=== PATIENT | female | born 1935 | race Caucasian/White ===

== ENCOUNTER 2017-05-07 11:38 | Inpatient (IN) | payer MEDICARE, BC ==
[~2017-05-07] VITALS: Ht 167.6 cm; Wt 63.5 kg
[2017-05-07] MEDS ORDERED: IV NORMAL SALINE 500 ML IV ONE (12:15)
[2017-05-07] MEDS ORDERED: ONDANSETRON IV *ER 4 MG/2 ML VIAL IV ONE (12:15)
[2017-05-07] MEDS ORDERED: MORPHINE SULFATE 2 MG/1 ML DISP.SYRIN IV ONE (12:15)
[2017-05-07 12:32] LABS: *BILIRUBIN,URIN NEGATIVE (NEGATIVE); *BLOOD, URINE Trace-lysed (NEGATIVE); *CLARITY,URINE CLEAR (CLEAR); *COLOR,URINE YELLOW (YELLOW); *KETONES,URINE TRACE (NEGATIVE); *PROTEIN,URINE NEGATIVE (NEGATIVE); *UROBILINOGEN,URINE 0.2 E.U./dl (NORMAL); LEUKOCYTE ESTERASE ,URINE 1+ (NEGATIVE); NITRITE, URINE NEGATIVE (NEGATIVE); UGLUCOSE NEGATIVE (NEGATIVE)
[2017-05-07] MEDS ORDERED: ONDANSETRON 4 MG/2 ML VIAL ONE (12:32)
[2017-05-07] MEDS ORDERED: MORPHINE SULFATE 10 MG/1 ML DISP.SYRIN ONE (12:33)
[2017-05-07 12:52] LABS: BASOPHILS # (AUTO) 0.1 K/uL (0.0-8.0); BASOPHILS % (AUTO) 0.3 % (0.0-2.0); EOSINOPHILS % (AUTO) 0.1 % (0.0-7.0); HEMATOCRIT 36.2 % (37-47); HEMOGLOBIN 12.6 G/DL (12.0-16.0); LYMPHOCYTES # (AUTO) 0.7 K/UL (0.8-4.8); LYMPHOCYTES % (AUTO) 3.4 % (20.5-51.5); MEAN CORPUSCULAR HEMOGLOBIN 33.5 UUG (27.0-31.0); MEAN CORPUSCULAR HGB CONC 35 g/dL (32.0-37.0); MEAN CORPUSCULAR VOLUME 96.6 FL (81.0-99.0); MONOCYTES # (AUTO) 1.8 K/UL (0.1-1.30); MONOCYTES % (AUTO) 8.4 % (0.0-11.0); NEUTROPHILS # (AUTO) 18.7 K/UL (1.8-8.9); NEUTROPHILS % (AUTO) 87.8 % (38.5-71.5); PLATELET COUNT (AUTO) 150 K/UL (150-450); RED BLOOD CELL COUNT(AUTO) 3.75 MIL/UL (4.2-5.4); WHITE BLOOD COUNT (AUTO) 21.3 K/UL (4.0-11.2)
[2017-05-07 12:59] LABS: BACTERIA,URINE FEW /HPF (NONE SEEN); SQUAMOUS EPITHELIAL CELL,UR FEW /HPF (NONE SEEN)
[2017-05-07 13:07] LABS: ALANINE AMINOTRANSFERASE 22 U/L (14-59); ALKALINE PHOSPHATASE 47 U/L (50-136); ASPARTATE AMINOTRANSFERASE 42 U/L (15-37); BILIRUBIN,TOTAL 0.9 mg/dL (0.2-1.0); CARBON DIOXIDE 24 mmol/L (21-32); CHLORIDE 102 mmol/L (98-107); CREATINE KINASE, TOTAL 813 U/L (26-192); CREATININE 0.5 mg/dL (0.6-1.3); GLUCOSE 129 mg/dL (74-106); POTASSIUM 4.3 mmol/L (3.5-5.1); TOTAL PROTEIN, SERUM 6.7 g/dL (6.4-8.2); UREA NITROGEN, BLOOD 14 mg/dL (7-18)
[2017-05-07 13:15] LABS: BAND % (MANUAL) 10 % (0-10); LYMPHOCYTES % (MANUAL) 3 % (20-40); MONOCYTES % (MANUAL) 12 % (2-10); NEUTROPHILS % (MANUAL) 75 % (42-75)
[2017-05-07] MEDS ORDERED: CEFTRIAXONE 1 G in IV DEXTROSE 5% 50 ML IV ONE (14:15)
[2017-05-07] MEDS ORDERED: IV NS 1000 ML 1,000 ML IV ONE (14:15)
--- NOTE | 2017-05-07 14:30 | NUR ---
Per pt to be admitted to tele. Pt resting at this time with no s/s of acute distress noted. Daughter remains at bedside.
[2017-05-07] MEDS ORDERED: CEFTRIAXONE 1 G VIAL ONE (14:40)
--- NOTE | 2017-05-07 14:49 | NUR ---
SBAR report given to Angela TODD via telephone.
--- NOTE | 2017-05-07 14:57 | NUR ---
SBAR report received from Mary TODD
--- NOTE | 2017-05-07 15:18 | NUR ---
Pt trans to tele floor, NAD noted.
--- NOTE | 2017-05-07 15:51 | NUR ---
Admitted to room 228 tele status 81 yr old femal who had a mechanical fall and had a fracture of the right humerus. patient is awake and responsive Addendum: 05/07/17 at 1656 by NATALEE GUAN RN Amended: Links added.
[2017-05-07 15:55] VITALS: BP 125/60
[2017-05-07] MEDS ORDERED: ZOLPIDEM 5 MG TABLET PO PRN (16:30)
[2017-05-07] MEDS ORDERED: ONDANSETRON 4 MG/2 ML VIAL IV PRN (16:30)
[2017-05-07] MEDS ORDERED: MORPHINE SULFATE 2 MG/1 ML DISP.SYRIN IV PRN (16:30)
[2017-05-07] MEDS ORDERED: Z GUARD REMEDY PASTE 57 GM TUBE TOP PRN (16:30)
[2017-05-07] MEDS ORDERED: MAGNESIUM HYDROXIDE 30 ML LIQUID UDC PO PRN (16:30)
[2017-05-07] MEDS ORDERED: ACETAMINOPHEN 325 MG TABLET PO PRN (16:30)
[2017-05-07] MEDS: IV D5 1/2 NS 1000 ML 1,000 ML IV PRN (17:09)
[2017-05-07] MEDS: HYDROMORPHONE 2 MG/1 ML DISP.SYRIN IV PRN ×2 (17:16→22:39)
--- NOTE | 2017-05-07 17:16 | NUR ---
medicated for brandan pain scale 12/17 Addendum: 05/07/17 at 1856 by NATALEE GUAN RN Amended: Sandy added. Addendum: 05/07/17 at 1901 by NATALEE GUAN RN Amended: Sandy added.
--- NOTE | 2017-05-07 17:16 | NUR ---
IV fluid D5 1/2 NS started at 75 ml/hr via left hand #20 Addendum: 05/07/17 at 1902 by NATALEE GUAN RN Amended: Links added.
--- NOTE | 2017-05-07 19:20 | NUR ---
report given to Gisela RN Addendum: 05/07/17 at 1921 by NATALEE GUAN RN Amended: Links added.
--- NOTE | 2017-05-07 19:30 | NUR ---
nsg: pt received a/o x 4, c/o right arm, should pain, 01/17, currently using the toilet accompanied by daughter. wears sling on right arm. tele, SR. on cont ivf. bed alarm on. call light within reach.
[2017-05-07] MEDS: HYDROCODONE/APAP 5-325MG TABLET PO PRN (20:16)
--- NOTE | 2017-05-07 20:25 | NUR ---
nsg: spoke with Dr. Lam. per not aware that he's is consulted for this patient. received order for npo after midnight. per pt will be evaluated tomorrow.
[2017-05-07 20:31] VITALS: BP 146/53
[2017-05-08 00:21] VITALS: BP_SYST 112; BP_DIAS 41; BP_DIAS 49
[2017-05-08] MEDS: HYDROMORPHONE 2 MG/1 ML DISP.SYRIN IV PRN ×5 (03:49→23:13)
[2017-05-08 04:50] VITALS: BP 97/44
--- NOTE | 2017-05-08 06:00 | NUR ---
nsg: all needs attended. c/o of right arm/shoulder pain with activity. received dilaudid 0.25mg ivp. assisted to the bedside commode. has small frequent urinary output, denies bladder discomfort. tele, SR. on cont ivf. currently npo for possible surgery. cont to monitor.
[2017-05-08 06:42] LABS: CARBON DIOXIDE 28 mmol/L (21-32); CHLORIDE 101 mmol/L (98-107); CREATININE 0.6 mg/dL (0.6-1.3); GLUCOSE 118 mg/dL (74-106); PHOSPHOROUS 2.4 mg/dL (2.5-4.9); POTASSIUM 3.5 mmol/L (3.5-5.1); UREA NITROGEN, BLOOD 14 mg/dL (7-18)
[2017-05-08 06:57] LABS: BASOPHILS % (AUTO) 0.2 % (0.0-2.0); EOSINOPHILS % (AUTO) 0.2 % (0.0-7.0); HEMATOCRIT 27.9 % (31.2-41.9); HEMOGLOBIN 9.6 g/dL (10.9-14.3); LYMPHOCYTES % (AUTO) 8.1 % (20.5-51.5); MEAN CORPUSCULAR HGB CONC 34 g/dL (32.3-35.6); MEAN CORPUSCULAR VOLUME 98.9 fL (75.5-95.3); MONOCYTES # (AUTO) 1.7 K/uL (2.0-10.0); MONOCYTES % (AUTO) 13.7 % (0.0-11.0); NEUTROPHILS # (AUTO) 9.8 K/uL (1.8-8.9); NEUTROPHILS % (AUTO) 77.8 % (38.5-71.5); PLATELET COUNT (AUTO) 209 K/uL (179-408); RED BLOOD CELL COUNT(AUTO) 2.82 MIL/uL (3.63-4.92)
[2017-05-08 07:20] LABS: WHITE BLOOD COUNT (AUTO) 12.6 K/uL (3.8-11.8)
[2017-05-08 07:28] LABS: MAGNESIUM 1.1 mg/dL (1.8-2.4)
--- NOTE | 2017-05-08 07:35 | NUR ---
critical lab value noted, magnesium level 1.1 called in to doctor Maik.. states he will place new orders shortly
--- NOTE | 2017-05-08 07:50 | NUR ---
patient noted resting in bed with eyes closed, no complaints of pain at this time, no signs of distress noted, call light is in reach, bed locked and in lowest position.
[2017-05-08] MEDS: HYDROCODONE/APAP 5-325MG TABLET PO PRN (08:52)
[2017-05-08] MEDS: CEFTRIAXONE 1 G in IV DEXTROSE 5% 50 ML IV SCH (08:52)
[2017-05-08 11:09] LABS: BAND % (MANUAL) 1 % (0-10); LYMPHOCYTES % (MANUAL) 8 % (20-40); MONOCYTES % (MANUAL) 8 % (2-10); NEUTROPHILS % (MANUAL) 83 % (42-75)
[2017-05-08 11:11] VITALS: BP 142/41
[2017-05-08] MEDS: MAGNESIUM SULFATE/D5W 100 ML IV SCH ×2 (11:30→18:14)
[2017-05-08] MEDS: POTASSIUM PHOSPHATE MM 5 MMOL in IV DEXTROSE 5% 100 ML IV SCH ×2 (14:30→16:44)
[2017-05-08 15:09] VITALS: BP 128/44
[2017-05-08] MEDS ORDERED: HYDROMORPHONE 1 MG/1 ML DISP.SYRIN IV PRN (15:15)
--- NOTE | 2017-05-08 15:15 | NUR ---
patient discharge from building at 1515 via private car and family member (son), 145/65, 69 pulse, 97% on room air, 98.1 oral temp, no complaints of pain, no signs of distress, discharge instructions provided, exit care provided, iv discontinued, all needs met, patient states she will receive flu shot else where,
--- NOTE | 2017-05-08 19:30 | NUR ---
RECEIVED SHIFT REPORT FROM PREVIOUS SHIFT NURSE. PATIENT RESTING COMFORTABLY IN BED. A/O X4, STABLE CONDITION, NO S/S OF DISTRESS. PATIENT IS IN PAIN IN BOTH SHOULDERS, PAIN MEDICATION ADMINISTERED DURING DAY SHIFT. PAIN MANAGEMENT WILL BE PROVIDED. NOTIFIED THAT PATIENT WILL BE NPO AFTER MIDNIGHT. NO ORDER FOR PROCEDURE AT THE MOMENT. ' SAFETY AND COMFORT WILL BE PROVIDED THROUGHOUT SHIFT.
[2017-05-08 20:30] VITALS: BP 118/55
[2017-05-09] MEDS: IV D5 1/2 NS 1000 ML 1,000 ML IV PRN (00:45)
[2017-05-09] MEDS: HYDROMORPHONE 2 MG/1 ML DISP.SYRIN IV PRN ×6 (03:41→22:58)
--- NOTE | 2017-05-09 03:41 | NUR ---
DILAUDID 1 MG IV ADMINISTED TO PATIENT. BLOOD PRESSURE CHECKED PRIOR TO ADMINISTRATION: 140/64, HR: 93. PATIENT IN STABLE CONDITION.
--- NOTE | 2017-05-09 05:30 | NUR ---
PATIENT HAD DIFFICULT TIME URINATING. BLADDER SCAN DONE. [address] BOGGS CONTACTED ABOUT OCCURRENCE AND ORDERED TO HAVE ALVAREZ CATHETER INSERTED. ALVAREZ CATHETER SUCCESSFULLY INSERTED.
[2017-05-09] MEDS: CEFTRIAXONE 1 G in IV DEXTROSE 5% 50 ML IV SCH (09:08)
[2017-05-09] MEDS ORDERED: POLYMYXIN B SULFATE 500,000 UNITS, BACITRACIN 50,000 UNITS, NORMAL SALINE 20 ML MC ONE ×3 (10:30)
[2017-05-09 11:44] VITALS: BP 109/48
--- NOTE | 2017-05-09 15:00 | NUR ---
Patient taken down to or for surgery
[2017-05-09] MEDS ORDERED: FENTANYL CITRATE 100 MCG/2 ML AMPUL ONE ×2 (15:27→17:28)
[2017-05-09] MEDS ORDERED: ROCURONIUM BROMIDE 50 MG/5 ML VIAL ONE (15:28)
[2017-05-09] MEDS ORDERED: NEOSTIGMINE METHYLSULFATE 10 MG/10 ML VIAL IV ONE (16:14)
[2017-05-09] MEDS ORDERED: GLYCOPYRROLATE 0.2 MG/ML VIAL MC ONE (16:14)
[2017-05-09] MEDS ORDERED: IV NORMAL SALINE 1000 ML BAG IV ONE (16:14)
[2017-05-09] MEDS ORDERED: DESFLURANE ANESTHESIA GAS 240 ML BOTTLE IH ONE (16:14)
[2017-05-09] MEDS ORDERED: PROPOFOL 200 MG/20 ML BOTTLE IV ONE (16:14)
[2017-05-09] MEDS ORDERED: CEFAZOLIN 1 G VIAL MC ONE (16:14)
[2017-05-09] MEDS ORDERED: ONDANSETRON 4 MG/2 ML VIAL IV ONE (16:14)
[2017-05-09] MEDS ORDERED: CEFAZOLIN 50 ML IV ONE (17:44)
[2017-05-09] MEDS ORDERED: IV D5W-0.45% NS +20 KCL 1,000 ML IV ONE (18:01)
[2017-05-09] MEDS ORDERED: POTASSIUM CHLORIDE 20 MEQ in IV D5 1/2 NS 1000 ML 1,000 ML IV PRN (18:15)
[2017-05-09 18:39] VITALS: BP 130/55
[2017-05-09 21:06] VITALS: BP 131/69
[2017-05-10 00:13] VITALS: BP 112/38
[2017-05-10] MEDS: CEFAZOLIN 1 G in PREMIXED 1 EACH IV SCH ×2 (01:19→10:37)
[2017-05-10] MEDS: HYDROMORPHONE 2 MG/1 ML DISP.SYRIN IV PRN ×2 (04:08→07:40)
--- NOTE | 2017-05-10 05:02 | NUR ---
PT IN BED, ASLEEP, AROUSABLE TO TOUCH/ NAME. S/P ORIF RIGHT HUMERUS FX, SITE WITH DRESSING, DRY AND INTACT. ICE PACK APPLIED REQUESTED. GIVEN WITH DILAUDID IV FOR PAIN ORDERED. TURNED AND REPOSITIONED. ALVAREZ PATENT AND INTACT, NO HEMATURIA. IVF STILL INFUSING. SAFETY MEASURES RENDERED.
[2017-05-10 05:04] VITALS: BP 123/46
[2017-05-10] MEDS: HYDROCODONE/APAP 10-325 MG TABLET PO PRN ×2 (09:51→14:07)
[2017-05-10 11:25] VITALS: BP 112/47
[2017-05-10 15:06] VITALS: BP 109/88
--- NOTE | 2017-05-10 16:30 | NUR ---
Patient discharged to acute rehab in stable condition. Discharge instructions given to daughter. Report was given to Gunnar TODD. Hansen and IV access in place. picture was taken and placed in chart. Patient was taken down by pura Paulson and myself.
== END 2017-05-10 16:15 | DRG 493 ==
LOC: ER 11:38 → TELE 15:24 → MED 05-08 19:08
PROVIDERS: ADMIT Internal Medicine; ATTEND Internal Medicine
PROC: 0PSC06Z Reposition Right Humeral Head with Intramedullary Internal Fixation Device, Open Approach (ICD-10-PCS; principal; 2017-05-09 15:30)
DX: S42.211A Unspecified displaced fracture of surgical neck of right humerus, initial encounter for closed fracture (principal); R65.10 Systemic inflammatory response syndrome (SIRS) of non-infectious origin without acute organ dysfunction; M62.82 Rhabdomyolysis; E83.39 Other disorders of phosphorus metabolism; E83.42 Hypomagnesemia; W01.0XXA Fall on same level from slipping, tripping and stumbling without subsequent striking against object, initial encounter; D63.8 Anemia in other chronic diseases classified elsewhere; R53.1 Weakness; M19.90 Unspecified osteoarthritis, unspecified site; Y93.9 Activity, unspecified; Y92.009 Unspecified place in unspecified non-institutional (private) residence as the place of occurrence of the external cause
CPT/HCPCS: 36415; 70030-TC; 70450; 71010; 73020; 73030; 73060; 73070; 73090; 73100; 73120; 73502; 76000; 83735; 84100; 85025; 86850; 86900; 86901; 93005; A4649; A4663; J0690; J0696; J1170; J2270; J2405; J2710; J3010; J3475; J3480; J3490; J7030; J7040; J7050; J7060

== ENCOUNTER 2017-05-10 16:32 | Inpatient (IN) | payer MEDICARE, BC ==
[~2017-05-10] VITALS: Ht 188 cm; Wt 76.3 kg
--- NOTE | 2017-05-10 16:30 | NUR ---
PT ADMITTED FROM TELE/ACUTE UNIT, VIA ESEQUIEL, DX OF RIGHT HUMERAL FRACTURE WITH ORIF, PT AAOX1, NO RESPIRATORY DISTRESS NOTED. PT ABLE TO AMBULATE WITH FWW, UNSTEADY GAIT. DAUGHTER IS AT BEDSIDE. PT NOTED WITH RIGHT EXTREMITY BRUISING, SACRAL REDNESS AND HEAD LACERATIONS. WOUND CONSULT ORDERED. PT AND FAMILY EDUCATED AND ORIENTED TO ROOM/UNIT. CALL LIGHT AND PERSONAL BELONGINGS KEPT WITHIN REACH. HAS CELL PHONE AND DAIRY MANAGEMENT SPECIALIST, INVENTORY DONE.
[2017-05-10] MEDS ORDERED: Z GUARD REMEDY PASTE 57 GM TUBE TOP PRN (17:00)
--- NOTE | 2017-05-10 18:47 | NUR ---
Patient refused pictures at this time for oroblem sites in the assessment.
--- NOTE | 2017-05-10 19:38 | NUR ---
Handoff to night nurse.
[2017-05-10] MEDS: OXYCODONE/APAP 5-325 MG TABLET PO PRN (20:28)
[2017-05-10 21:54] VITALS: BP 121/47
[2017-05-11] MEDS: OXYCODONE/APAP 5-325 MG TABLET PO PRN ×3 (04:11→16:57)
[2017-05-11 07:30] VITALS: BP 129/57
[2017-05-11 07:51] LABS: BASOPHILS # (AUTO) 0.1 K/uL (0.0-8.0); BASOPHILS % (AUTO) 0.4 % (0.0-2.0); EOSINOPHILS # (AUTO) 0.2 K/uL (0.0-0.7); EOSINOPHILS % (AUTO) 1.6 % (0.0-7.0); HEMATOCRIT 28.9 % (31.2-41.9); LYMPHOCYTES # (AUTO) 1.1 K/uL (20.0-40.0); LYMPHOCYTES % (AUTO) 7.3 % (20.5-51.5); MEAN CORPUSCULAR HGB CONC 35 g/dL (32.3-35.6); MEAN CORPUSCULAR VOLUME 98.5 fL (75.5-95.3); MONOCYTES # (AUTO) 1.6 K/uL (2.0-10.0); MONOCYTES % (AUTO) 10.9 % (0.0-11.0); NEUTROPHILS # (AUTO) 11.6 K/uL (1.8-8.9); NEUTROPHILS % (AUTO) 79.8 % (38.5-71.5); RED BLOOD CELL COUNT(AUTO) 2.93 MIL/uL (3.63-4.92); WHITE BLOOD COUNT (AUTO) 14.6 K/uL (3.8-11.8)
[2017-05-11 07:55] LABS: CARBON DIOXIDE 26 mmol/L (21-32); CHLORIDE 99 mmol/L (98-107); CHOLESTEROL 148 mg/dL (<200); CREATININE 0.5 mg/dL (0.6-1.3); GLUCOSE 115 mg/dL (74-106); HDL CHOLESTEROL 82 mg/dL (40-60); MAGNESIUM 1.5 mg/dL (1.8-2.4); PHOSPHOROUS 1.7 mg/dL (2.5-4.9); POTASSIUM 4.1 mmol/L (3.5-5.1); TRIGLYCERIDES 79 MG/DL (30-150); UREA NITROGEN, BLOOD 7 mg/dL (7-18)
[2017-05-11 08:09] LABS: PLATELET COUNT (AUTO) 310 K/uL (179-408)
[2017-05-11] MEDS ORDERED: MAGNESIUM OXIDE 400 MG TABLET PO ONE (12:30)
[2017-05-11] MEDS ORDERED: NEUTRA PHOS PACKET PO ONE ×2 (16:30)
--- NOTE | 2017-05-11 19:30 | NUR ---
Received patient lying in bed, no s/s of acute distress. Call light within reach. Encouraged to call for help when necessary. Will continue to monitor.
[2017-05-11] MEDS: ACETAMINOPHEN 325 MG TABLET PO PRN (21:12)
[2017-05-11 21:19] VITALS: BP 137/67
[2017-05-12] MEDS: OXYCODONE/APAP 5-325 MG TABLET PO PRN ×3 (01:42→21:00)
[2017-05-12] MEDS: ACETAMINOPHEN 325 MG TABLET PO PRN ×2 (06:36→23:56)
--- NOTE | 2017-05-12 06:38 | NUR ---
Patient awake in bed, no s/s of acute distress. Respirations even and unlabored. Slept intermittently. Pain interventions provided, comfort and safety measures in place. Assisted during ambulation. Meds given. Needs attended. Frequent checks done. Call light kept within reach.
[2017-05-12 07:38] LABS: CARBON DIOXIDE 29 mmol/L (21-32); CHLORIDE 102 mmol/L (98-107); CREATININE 0.5 mg/dL (0.6-1.3); GLUCOSE 131 mg/dL (74-106); PHOSPHOROUS 2.1 mg/dL (2.5-4.9); POTASSIUM 3.8 mmol/L (3.5-5.1); UREA NITROGEN, BLOOD 6 mg/dL (7-18)
[2017-05-12 07:50] VITALS: BP 146/66
[2017-05-12] MEDS ORDERED: NEUTRA PHOS PACKET PO ONE (15:15)
--- NOTE | 2017-05-12 19:45 | NUR ---
Received patient lying in bed, no s/s of acute distress. Call light within reach. Encouraged to call for help when necessary. Will continue to monitor.
[2017-05-12 20:24] VITALS: BP 140/66
[2017-05-13] MEDS: OXYCODONE/APAP 5-325 MG TABLET PO PRN ×3 (09:24→21:41)
--- NOTE | 2017-05-13 12:00 | NUR ---
Patient ambulates with minimal assist, had shower today, tolerated activity well , no distress noted. Will continue to monitor for safety and needs.
--- NOTE | 2017-05-13 15:42 | NUR ---
Respiratory Therapist: Biopsychosocial Assessment Bio: SW met with patient at bedside to assess for needs and provide support. Patient is an 81-year-old female admitted to ARU due to functional impairment. Patient fell at home, which led to fracture of the right humerus. Per patient, she attempted to lift herself up off of the floor and hit her head on a cabinet. She reported that she was on the ground for "five hours" before her daughter found her. Per patient, prior to ARU admission she was independent at home. Mental Status: Patient appeared alert and oriented x4 during interview. She presented in a depressed mood with a congruent affect. Patient has been in the hospital since May 10, 2017. She reported that being in the hospital is difficult for her. She is used to being "very independent". There is no mental illness history reported. Patient appears anxious about returning home and is unsure of her abilities to care for herself. Patient reported that physical and occupational therapies have been difficult for her due to pain. Social: Patient became a at the age of 26 and raised her five daughters alone. Patient currently lives home alone, but reported that her daughters live in the area. Patient's daughters appear supportive, however patient reported they have demanding jobs. Patient stated that she has a life alert device, but does not currently have any caregiving services. Goals: Patient stated she would like to be independent. Interventions: SW engaged in active listening. SW provided emotional support and counseling. SW will provide linkage to case management. SW will provide caregiver referrals to patient. SW will encourage patient to comply with rehab goals.
--- NOTE | 2017-05-13 16:15 | NUR ---
Hourly rounds done. Patient c/o right shoulder pain at 7/10, percocet 1 tablet PO given at 1519, reassessed in an hour, pain 3/10. Will continue to monitor for safety and needs.
[2017-05-13 19:30] VITALS: BP 139/58
--- NOTE | 2017-05-13 19:30 | NUR ---
RECEIVED PATIENT FROM DAY SHIFT NURSE. SHIFT REPORT AT BEDSIDE. PATIENT A/O X3 WITH NO SIGNS OF ACUTE DISTRESS OR SOB. PATIENT LYING COMFORTABLY IN BED AT START OF SHIFT. PERTINENT ASSESSMENTS COMPLETED. CALL LIGHT PLACED WITHIN REACH OF PATIENT. ENCOURAGED PATIENT TO CALL IF SHE NEEDS ANY ASSISTANCE. WILL CONTINUE TO MONITOR PATIENT THROUGH SHIFT.
[2017-05-14] MEDS: OXYCODONE/APAP 5-325 MG TABLET PO PRN ×3 (06:16→22:03)
--- NOTE | 2017-05-14 06:27 | NUR ---
PATIENT SLEPT INTERMITTENTLY THROUGH THE SHIFT. NO SIGNS OF SOB, OR ACUTE DISTRESS. ABLE TO MAKE NEEDS KNOWN. COMPLAINTS OF RIGHT SHOULDER PAIN THROUGH OUT SHIFT. PAIN MEDICATIONS ADMINISTERED ORDERED PER MD. SAFETY MEASURES IMPLEMENTED. ENCOURAGED PATIENT TO USE CALL LIGHT WHEN IN NEED OF ASSISTANCE. ASSISTED PT TO BATHROOM. VITAL SIGNS STABLE THROUGH SHIFT. WILL ENDORSE TO DAY SHIFT NURSE.
[2017-05-14 07:10] VITALS: BP 126/65
[2017-05-14] MEDS: ACETAMINOPHEN 325 MG TABLET PO PRN ×2 (09:21→18:49)
--- NOTE | 2017-05-14 09:33 | NUR ---
I agree Addendum: 05/14/17 at 1359 by MAHAMED MONTERO OT Amended: Links added.
--- NOTE | 2017-05-14 11:32 | NUR ---
SBAR report received near bedside, board updated. Pt assessed no acute distress noted, no SOB, and O2 sat at 99% on RA, mask offered r/t poor air quality today. Pain 6/10 reported, Tylenol administered per PRN orders. Pt compliant with all routinely scheduled morning medications. Pt assisted to bathroom. Plan for today discussed and Pt expresses eagerness to actively participate in all scheduled therapies. All comfort and safety measures met. Pt able to make needs known. Personal items and call light within reach. Will continue to monitor.
--- NOTE | 2017-05-14 15:17 | NUR ---
Pt seen by , new orders received and placed for a CBC to be completed. If elevation is shown from most recent CBC, Dr. Cruz is to be notified r/t the next plan of action regarding possibility of antibiotic administration. Will endorse to on coming shift about about following up. Pt able to make needs known. Will continue to monitor.
--- NOTE | 2017-05-14 15:28 | NUR ---
I agree Addendum: 05/17/17 at 1529 by MAHAMED MONTERO OT Amended: Links added.
--- NOTE | 2017-05-14 15:56 | NUR ---
I agree Addendum: 05/14/17 at 1556 by MAHAMED MONTERO OT Amended: Links added.
--- NOTE | 2017-05-14 18:12 | NUR ---
No notable changes, v/s stable and labs WNL. Will continue to monitor and endorse oncoming shift.
--- NOTE | 2017-05-14 19:30 | NUR ---
RECEIVED PATIENT FROM DAY SHIFT NURSE. SHIFT REPORT AT BEDSIDE. PATIENT A/O X4, STABLE, WITH NO SIGNS OF SOB OR ACUTE DISTRESS. PERTINENT ASSESSMENT COMPLETED. CALL LIGHT PLACED WITHIN REACH OF PATIENT. WILL CONTINUE TO MONITOR PATIENT THROUGH SHIFT.
[2017-05-14 19:52] LABS: BASOPHILS # (AUTO) 0.1 K/uL (0.0-8.0); BASOPHILS % (AUTO) 0.6 % (0.0-2.0); EOSINOPHILS # (AUTO) 0.4 K/uL (0.0-0.7); EOSINOPHILS % (AUTO) 4.1 % (0.0-7.0); HEMOGLOBIN 9.4 g/dL (10.9-14.3); LYMPHOCYTES # (AUTO) 1.4 K/uL (20.0-40.0); LYMPHOCYTES % (AUTO) 15.4 % (20.5-51.5); MEAN CORPUSCULAR HEMOGLOBIN 34.2 uug (24.7-32.8); MEAN CORPUSCULAR HGB CONC 35 g/dL (32.3-35.6); MEAN CORPUSCULAR VOLUME 98.1 fL (75.5-95.3); MONOCYTES # (AUTO) 1.1 K/uL (2.0-10.0); NEUTROPHILS # (AUTO) 6.2 K/uL (1.8-8.9); NEUTROPHILS % (AUTO) 67.9 % (38.5-71.5); PLATELET COUNT (AUTO) 426 K/uL (179-408); RED BLOOD CELL COUNT(AUTO) 2.75 MIL/uL (3.63-4.92); WHITE BLOOD COUNT (AUTO) 9.1 K/uL (3.8-11.8)
[2017-05-14 21:06] VITALS: BP 140/59
[2017-05-14 21:11] VITALS: BP 125/52
--- NOTE | 2017-05-15 06:57 | NUR ---
PATIENT SLEPT INTERMITTENTLY THROUGH THE NIGHT. STABLE WITH NO SIGNS OF SOB OR ACUTE DISTRESS. ALL NEEDS ATTENDED TO. ALL MEDICATIONS ADMINISTERED ORDERED. RIGHT SHOULDER PAIN AT START OF SHIFT. PAIN MEDS ADMINISTERED ORDERED PER MD. ENCOURAGED PATIENT TO USE CALL LIGHT WHEN NEEDING TO AMBULATE OR USE RESTROOM. PATIENT NON COMPLIANT AND INDEPENDENTLY WALKING TO THE RESTROOM. FREQUENT ROUNDS DONE. SAFETY MEASURES IMPLEMENTED. VITAL SIGNS STABLE. CALL LIGHT WITHIN REACH OF PATIENT. WILL ENDORSE TO DAY SHIFT NURSE.
[2017-05-15 07:11] VITALS: BP 141/63
[2017-05-15] MEDS: OXYCODONE/APAP 5-325 MG TABLET PO PRN ×4 (08:50→21:55)
--- NOTE | 2017-05-15 14:40 | NUR ---
INTERDISCIPLINARY TEAM CONFERENCE
--- NOTE | 2017-05-15 17:04 | NUR ---
Patient seen by Dr. Peña with order to change frequency of Percocet. Patient aware. Order carried out.
[2017-05-15 19:55] VITALS: BP 133/59
[2017-05-15] MEDS: ZOLPIDEM 5 MG TABLET PO PRN (21:31)
[2017-05-16] MEDS: ACETAMINOPHEN 325 MG TABLET PO PRN (05:33)
--- NOTE | 2017-05-16 05:39 | NUR ---
Patient slept intermittently t/o the night. AAO x3. No acute distress noted. No c/o pain or discomfort. Vital signs stable. Meds given as prescribed. Assisted to the bathroom as needed. All needs attended to promptly. Safety measures maintained. Call light and personal belongings within reach. Will endorse to day shift RN. Continue to monitor.
--- NOTE | 2017-05-16 08:09 | NUR ---
PATIENT NOTED SITTING ON THE SIDED OF THE BED LOOKING AT CELL PHONE, NO COMPLAINTS OF PAIN AT THIS TIME, NO SIGNS OF DISTRESS, ALL NEEDS MET, CALL LIGHT IN REACH, BED LOCKED AN DIN LOWEST POSITION
[2017-05-16 09:18] VITALS: BP 125/70
--- NOTE | 2017-05-16 09:33 | NUR ---
I agree Addendum: 05/16/17 at 2548 by MAHAMED MONTERO OT Amended: Links added.
[2017-05-16] MEDS: OXYCODONE/APAP 5-325 MG TABLET PO PRN ×2 (10:17→19:56)
--- NOTE | 2017-05-16 19:25 | NUR ---
Received pt feeling agitated and complaining that her needs were not given. Dr. ePña seen patient. AAO x4. C/o pain and being hungry. Will follow through with interventions. No acute distress noted. Safety measures maintained. Call light and personal belongings within reach. Will continue to monitor.
[2017-05-16 20:19] VITALS: BP 150/69
[2017-05-16] MEDS: ZOLPIDEM 5 MG TABLET PO PRN (23:39)
[2017-05-17] MEDS: OXYCODONE/APAP 5-325 MG TABLET PO PRN ×3 (03:17→17:27)
--- NOTE | 2017-05-17 05:52 | NUR ---
Patient slept intermittently at night. Vital signs stable. Meds given as prescribed. All needs attended to promptly. Will endorse to day shift RN. Continue to monitor.
--- NOTE | 2017-05-17 07:52 | NUR ---
PATIENT NOTED SITTING UP IN BED, ASSISTED TO RESTROOM AT THIS TIME, NO COMPLAINTS OF PAIN AT THIS TIME, NO SIGNS OF DISTRESS NOTED, CALL LIGHT IN REACH, BED LOCKED AND IN LOWEST POSITION, WATER AND ICE PROVIDED TO PATIENT, ALL NEEDS MET AT THIS TIME
[2017-05-17 08:00] VITALS: BP 140/63
--- NOTE | 2017-05-17 15:27 | NUR ---
I agree Addendum: 05/17/17 at 1528 by MAHAMED MONTERO OT Amended: Links added.
[2017-05-17 20:43] VITALS: BP 149/69
[2017-05-17] MEDS: ZOLPIDEM 5 MG TABLET PO PRN (21:25)
[2017-05-17] MEDS: ACETAMINOPHEN 325 MG TABLET PO PRN (21:25)
[2017-05-18] MEDS: OXYCODONE/APAP 5-325 MG TABLET PO PRN (02:03)
[2017-05-18 08:00] VITALS: BP 115/65
--- NOTE | 2017-05-18 11:55 | NUR ---
Patient sitting up in bed at this time. No complaints of pain. No symptoms of distress. VSS. Belongings at bedside. Patient dressed for discharge home with private RN arranged by patient. There is no iv access. Discharge instructions provided by supporting direct care staffer. Per patient, expected arrival of private RN is 1300.
--- NOTE | 2017-05-18 13:35 | NUR ---
PATIENT ASSISTED TO PRIVATE CAR IN WHEELCHAIR WITH CAREGIVER, 138/69, 92 HEART RATE, 98% ON ROOM AIR, 16 RESPIRATIONS, 98.2 ORAL TEMPERATURE, EXIT CARE PROVIDED, PATIENT STATES FLU AND PNEUMOCOCCAL VACCINATION RECEIVED PRIOR TO ARRIVING ON UNIT, DISCHARGE INSTRUCTIONS GIVEN TO PATIENT, PICTURES TAKEN OF SKIN ISSUES AND PLACED IN CHART, PATIENT REFUSED TO HAVE PICTURE TAKEN OF SACRAL AREA, MEDICATION LIST PROVIDED, PATIENT IN STABLE CONDITION, NO COMPLAINTS AT TIME OF DISCHARGE, NO SIGNS OF DISTRESS, ALL NEEDS MET
== END 2017-05-18 13:35 | disposition home health service (06) | DRG 560 ==
PROVIDERS: ADMIT Physical Medicine & Rehabilitation Pain Medicine; ATTEND Physical Medicine & Rehabilitation Pain Medicine
DX: S42.301D Unspecified fracture of shaft of humerus, right arm, subsequent encounter for fracture with routine healing (principal); M62.82 Rhabdomyolysis; E87.8 Other disorders of electrolyte and fluid balance, not elsewhere classified; D64.9 Anemia, unspecified; W19.XXXD Unspecified fall, subsequent encounter; M19.90 Unspecified osteoarthritis, unspecified site; R53.1 Weakness
CPT/HCPCS: 36415; 83735; 84100; 85025; 92507; 92523; 97110; 97112; 97116; 97165; 97530; 97535